=== PATIENT | male | born 1995 | race Caucasian/White ===

== ENCOUNTER 2017-01-24 19:24 | Emergency (ER) | payer SELFPAY ==
[2017-01-24 19:28] VITALS: BP 126/71; PULSE 71; RESP 15; TEMP 98.1; O2SAT 98
--- NOTE | 2017-01-24 20:03 | PD ---
Physical Exam Date Seen by Provider: Jan 24, 2017 Time Seen by Provider: 20:01 Narrative 21-year-old male from [facility] presents to emergency Department with complaints of bilateral eye discomfort, and a pressure sensation which has become worse over the last 3 months. 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 Patient states he was seen by an methods specialist engineer in [place] who stated they could not help him. Here as he feels that his vision is worsening, and he is trying to get help. He denies any other medical problems. He takes no medications. He has no known drug allergies. Vital signs are stable. Patient is awaiting medical bed placement. Data Data Last Documented VS Vital Signs Date Time Temp Pulse Resp B/P (MAP) Pulse Ox O2 Delivery O2 Flow Rate FiO2 01/24/17 19:28 98.1 71 15 126/71 (89) 98 Room Air [facility] Medical Record Reviewed: Yes Supervised Visit with LIZ: Yes Scripts No Active Prescriptions or Reported Meds Condition: Stable Yakov Kramer Jan 24, 2017 20:03
[2017-01-24 20:16] VITALS: BP 134/80; PULSE 72; RESP 18; O2SAT 98
[2017-01-24] MEDS ORDERED: PROPARACAINE HCL 0.5% OPHT SOLN 15 ML BTL EACH EYE ONE (20:30)
--- NOTE | 2017-01-24 20:59 | PD ---
HPI Chief Complaint: Eye Problems/Injury Time Seen by Provider: 20:08 Travel History International Travel<30 days: No Contact w/Intl Traveler<30days: No Traveled to known affect area: No History of Present Illness HPI 21-year-old male that presents to the ED for evaluation of visual loss. Per patient she's had visual loss for about 4 years now. He used to work glasses he doesn't wear them anymore because it. The patient is somewhat of a poor historian and she is not really aware as to what condition he has. 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 He states that he doesn't know what this diagnosis wasp that he was told that he needed to follow with a different hospital. He states that he has pain in both eyes. Per patient the pain is achy. 5 out of 10. He states having watery on the eyes. He states that he is able to see what he sees blurry and guaiac. He denies any chest pain or shortness of breath. No injury to the eye. No allergies to medication. He has no old patient provider. Per patient he lives here in [place] now. Patient is Kyrgyz speaker only but he feels comfortable my Kyrgyz and he declined operations boardman services. He cannot really tell me if one hour the other one is better worse. Overall he is somewhat of a poor historian and has poor knowledge of his condition. [facility] Past Medical History Medical History: Denies Significant Hx Diminished Hearing: No Tetanus Vaccination: Unknown Past Surgical History Surgical History: No Previous Surgery Social History Alcohol Use: No Tobacco Use: No Substance Use: No Allergies-Medications (Allergen,Severity, Reaction): Coded Allergies: No Known Allergies (Unverified , 01/24/17) Reported Meds & Prescriptions Reported Meds & Active Scripts Active No Active Prescriptions or Reported Medications Review of Systems Except as stated in HPI: all other systems reviewed are Neg Physical Exam Narrative GENERAL: SKIN: Warm and dry. HEAD: Atraumatic. Normocephalic. EYES: Pupils equal and round 4 mm reactive to light and accommodation. No scleral icterus. No injection or drainage. EOM intact bilaterally. Fluorescein stain revealed no sign of corneal abrasion or foreign body or infection noted. IOP's were on the right 18, 20, 17: On the left 14, 17, 13. Patient could not really perform the visual equity with both eyes open or with either eye. ENT: No nasal bleeding or discharge. Mucous membranes pink and moist. NECK: Trachea midline. No JVD. CARDIOVASCULAR: Regular rate and rhythm. RESPIRATORY: No accessory muscle use. Clear to auscultation. Breath sounds equal bilaterally. GASTROINTESTINAL: Abdomen soft, non-tender, nondistended. Hepatic and splenic margins not palpable. MUSCULOSKELETAL: Extremities without clubbing, cyanosis, or edema. No obvious deformities. NEUROLOGICAL: Awake and alert. No obvious cranial nerve deficits. Motor grossly within normal limits. Five out of 5 muscle strength in the arms and legs. Normal speech. PSYCHIATRIC: Appropriate mood and affect; insight and judgment normal. Data Data Last Documented VS Vital Signs Date Time Temp Pulse Resp B/P (MAP) Pulse Ox O2 Delivery O2 Flow Rate FiO2 01/24/17 20:16 72 18 134/80 (98) 98 Room Air 01/24/17 19:28 98.1 Orders Orders Proparacaine 0.5% Opth Soln (Alcaine 0.5 (01/24/17 20:30) Mandatory Outpatient Referral (01/24/17 20:48) [facility] Medical Decision Making Medical Screen Exam Complete: Yes Emergency Medical Condition: Yes Medical Record Reviewed: Yes Differential Diagnosis acute on chronic illness vs visual loss vs glaucoma vs conjunctivitis vs congenital disorder vs cataract Narrative Course 21-year-old male that presents to the ED for evaluation of visual loss. Patient was properly examined and was found to have signs and symptoms of unclear etiology. Overall patient is a poor historian even with Kyrgyz translation. He is poorly aware of what illness his been diagnosed. This appears to be a chronic issue. On exam he doesn't appear to have any signs of glaucoma or infection. He says been ongoing for 4 years and his been worsening per patient for the past 3 months. He apparently used to work glasses and has no longer because it doesn't help him. He cannot really give us any other history. He does appear to be have some visual equity deficits that he will benefit from outpatient follow-up with an diplomatic courier. Because of this I have ordered a monitor referral for an ophthalmology evaluation of side to feel that the patient will require surgery evaluation of his visual loss and to better diagnosed in to see this so reversible illness. My attending Dr. Yang was made aware of all findings including the visual loss in the history and he agrees with outpatient follow-up and no further interventions other than follow-up outpatient. See ED worsening symptoms. Follow with PCP. Diagnosis Primary Impression: Visual loss Referrals: Architectural Wood Model Maker Patient Instructions: General Instructions Additional Instructions: Follow-up with the eye doctor. See ED if worsening symptoms. Med/Other Pt SpecificInfo: Prescription(s) given Scripts No Active Prescriptions or Reported Meds Disposition: 01 DISCHARGE HOME Condition: Stable Zack Rheman Jan 24, 2017 20:59
== END 2017-01-24 21:14 | disposition home or self-care (01) ==
LOC: NEPE 19:24
DX: H54.7 Unspecified visual loss (principal)
CPT/HCPCS: 99283